=== PATIENT | female | born 1995 | race Caucasian/White ===

== ENCOUNTER 2018-03-21 17:29 | Emergency (ER) | payer MEDICAID ==
[~2018-03-21] VITALS: Ht 152.4 cm; Wt 51.0 kg
[~2018-03-21 17:29] MED LIST: FERR-43 PO; PREN-88 PO
[2018-03-21 18:04] VITALS: BP 138/82
== END 2018-03-21 21:20 | disposition left against medical advice (07) ==
LOC: ER 20:30
DX: Z53.21 Procedure and treatment not carried out due to patient leaving prior to being seen by health care provider (principal)